=== PATIENT | male | born 1975 | race Caucasian/White ===

== ENCOUNTER 2018-09-08 04:18 | Emergency (ER) | payer BC, OTHER ==
[~2018-09-08] VITALS: Ht 172.7 cm; Wt 102.1 kg
--- NOTE | 2018-09-08 04:25 | NUR ---
Dr. Lizama at bedside for MSE.
[2018-09-08] MEDS ORDERED: KETOROLAC TROMETHAMINE 30 MG INJ IVP ONE (04:30)
--- NOTE | 2018-09-08 04:35 | NUR ---
Patient ambulated with stable gait. A/Ox4. Patient came for c/o left side/flank pain x20min [employer], along with N/V. Respiratory even and unlabored, no cough no sob. No signs of cardiovascular distress noted. Patient in bed at lowest position, sr upx2, call light within reach. Fall precautions implemented per protocol.
[2018-09-08] MEDS ORDERED: KETOROLAC TROMETHAMINE 30 MG INJ ONE (04:38)
--- NOTE | 2018-09-08 04:45 | NUR ---
Pt provided urine sample, sent to lab
[2018-09-08 04:48] LABS: BASOPHILS # (AUTO) 0.1 K/uL (0.0-8.0); BASOPHILS % (AUTO) 0.8 % (0.0-2.0); EOSINOPHILS # (AUTO) 0.2 K/uL (0.0-0.7); EOSINOPHILS % (AUTO) 2.1 % (0.0-7.0); HEMATOCRIT 45.5 % (36.7-47.1); HEMOGLOBIN 15.6 g/dL (12.5-16.3); LYMPHOCYTES # (AUTO) 3.2 K/uL (20.0-40.0); LYMPHOCYTES % (AUTO) 40.2 % (20.5-51.5); MEAN CORPUSCULAR HEMOGLOBIN 29.6 uug (23.8-33.4); MEAN CORPUSCULAR HGB CONC 34 g/dL (32.5-36.3); MEAN CORPUSCULAR VOLUME 86.3 fL (73.0-96.2); MONOCYTES # (AUTO) 0.7 K/uL (2.0-10.0); MONOCYTES % (AUTO) 8.8 % (0.0-11.0); NEUTROPHILS # (AUTO) 3.8 K/uL (1.8-8.9); NEUTROPHILS % (AUTO) 48.1 % (38.5-71.5); PLATELET COUNT (AUTO) 218 K/uL (152-348); RED BLOOD CELL COUNT(AUTO) 5.27 MIL/uL (4.06-5.63); WHITE BLOOD COUNT (AUTO) 7.9 K/uL (3.6-10.2)
[2018-09-08 04:53] LABS: *BILIRUBIN,URIN NEGATIVE (NEGATIVE); *BLOOD, URINE TRACE (NEGATIVE); *CLARITY,URINE CLEAR (CLEAR); *COLOR,URINE YELLOW (YELLOW); *KETONES,URINE NEGATIVE (NEGATIVE); *UROBILINOGEN,URINE 0.2 E.U./dl (NORMAL); LEUKOCYTE ESTERASE ,URINE NEGATIVE (NEGATIVE); NITRITE, URINE NEGATIVE (NEGATIVE); PH,URINE 5.5 (5.0-8.0); UGLUCOSE NEGATIVE (NEGATIVE)
[2018-09-08 04:54] LABS: BACTERIA,URINE NONE SEEN /HPF (NONE SEEN); RBC,URINE 0-3 /HPF (0-3); SQUAMOUS EPITHELIAL CELL,UR FEW /HPF (NONE SEEN); WBC,URINE 0-3 /HPF (0-3)
[2018-09-08] MEDS ORDERED: HYDROMORPHONE 1 MG/1 ML DISP.SYRIN ONE ×2 (05:08→05:55)
[2018-09-08 05:12] LABS: BILIRUBIN,DIRECT 0.1 mg/dL (0.0-0.2); BILIRUBIN,TOTAL 0.5 mg/dL (0.2-1.0); CREATININE 1.1 mg/dL (0.6-1.3); POTASSIUM 3.4 mmol/L (3.5-5.1)
[2018-09-08] MEDS ORDERED: HYDROMORPHONE 1 MG/1 ML DISP.SYRIN IV ONE ×2 (05:15→06:00)
--- NOTE | 2018-09-08 05:19 | NUR ---
Ultrasound at bedside.
[2018-09-08] MEDS ORDERED: IV NORMAL SALINE 1000 ML BAG IV ONE (05:45)
--- NOTE | 2018-09-08 06:05 | NUR ---
Patient transferred to CT in stable condition.
--- NOTE | 2018-09-08 06:15 | NUR ---
Patient back in room from CT
--- NOTE | 2018-09-08 06:24 | NUR ---
Pt states he doesn't take any medications at home.
--- NOTE | 2018-09-08 06:57 | NUR ---
Patient discharged to home in stable conditon. Written and verbal after care instructions given. Patient verbalizes understanding of instructions. Patient ambulated with stable gait. Instructed patient that he is not allowed to drive d/t the medications administered this morning, he verbalized understanding and his will be the inventory associate and driver.
[2018-09-08 06:59] VITALS: BP 128/81
== END 2018-09-08 07:00 | disposition home or self-care (01) ==
LOC: ER 04:19
DX: N20.0 Calculus of kidney (principal); F17.200 Nicotine dependence, unspecified, uncomplicated
CPT/HCPCS: 36415; 74176; 76770; 80048; 80076; 81000; 81001; 85025; 96374; 96375; 96376; 99284; J1170 ×2; J1885; A4663; J7040